=== PATIENT | male | born 1965 | race Caucasian/White ===

== ENCOUNTER 2023-08-15 11:03 | Outpatient (CLI) | payer MEDICAID | END 2023-08-15 23:59 | disposition home or self-care (01) | LOC: RAD 11:03 | PROVIDERS: ATTEND Student in an Organized Health Care Education/Training Program | DX: J43.9 Emphysema, unspecified (principal); I25.10 Atherosclerotic heart disease of native coronary artery without angina pectoris; F17.210 Nicotine dependence, cigarettes, uncomplicated | CPT/HCPCS: 71271 ==

== ENCOUNTER 2023-11-28 08:44 | Outpatient (CLI) | payer MEDICAID | END 2023-11-28 23:59 | disposition home or self-care (01) | LOC: VAS 08:44 | PROVIDERS: ATTEND Student in an Organized Health Care Education/Training Program | DX: R55 Syncope and collapse (principal); I51.7 Cardiomegaly; Z87.891 Personal history of nicotine dependence | CPT/HCPCS: 93306; 93880 ==